=== PATIENT | female | born 1980 | race Native Hawaiian/Other Pacific Islander ===

== ENCOUNTER 2018-12-04 09:44 | Outpatient (CLI) | payer BC | END 2018-12-04 19:45 | disposition home or self-care (01) | LOC: US 09:44 | DX: R31.0 Gross hematuria (principal) ==

== ENCOUNTER 2019-12-10 14:37 | Outpatient (CLI) | payer BC | END 2019-12-10 19:08 | disposition home or self-care (01) | LOC: MRI 14:37 | DX: M51.15 Intervertebral disc disorders with radiculopathy, thoracolumbar region (principal) ==

== ENCOUNTER 2020-01-22 11:45 | Emergency (ER) | payer BC, OTHER ==
[~2020-01-22] VITALS: Ht 165.1 cm; Wt 104.3 kg
[2020-01-22 11:48] VITALS: TEMP 97.7
[2020-01-22 13:22] LABS: POTASSIUM 4.8 mmol/L (3.6-5.2)
[2020-01-22 14:11] LABS: PLATELET COUNT 354 K/uL (152-353)
[2020-01-22 18:38] VITALS: BP 163/80
== END 2020-01-22 18:38 | disposition home or self-care (01) ==
LOC: ED 11:45
PROVIDERS: Family Medicine
DX: R45.851 Suicidal ideations (principal); F32.89 Other specified depressive episodes
CPT/HCPCS: 80053; 80307; 80329; 81000; 85027; 93005; 99285

== ENCOUNTER 2020-02-18 19:43 | Emergency (ER) | payer BC, OTHER ==
[~2020-02-18] VITALS: Ht 165.1 cm; Wt 101.2 kg
[2020-02-18 21:35] VITALS: BP 128/84; TEMP 99.2
== END 2020-02-18 21:35 | disposition home or self-care (01) ==
LOC: ED 19:43
DX: U07.1 COVID-19 (principal)
CPT/HCPCS: 99282

== ENCOUNTER 2021-11-29 05:51 | Emergency (ER) | payer BC ==
[~2021-11-29] VITALS: Ht 165.1 cm; Wt 101.2 kg
[2021-11-29 05:55] VITALS: TEMP 98.1
[2021-11-29 06:34] LABS: PLATELET COUNT 400 K/uL (152-353)
[2021-11-29 06:35] LABS: POTASSIUM 4.6 mmol/L (3.6-5.2)
[2021-11-29 08:20] VITALS: BP 148/72
== END 2021-11-29 08:29 | disposition home or self-care (01) ==
LOC: ED 05:51
PROVIDERS: Family Medicine
DX: N20.0 Calculus of kidney (principal)
CPT/HCPCS: 80053; 81000; 81025; 85027; 96360; 96374; 99284; J1885